=== PATIENT | female | born 1995 | race Caucasian/White ===

== ENCOUNTER 2017-02-03 13:33 | Emergency (ER) | payer BC ==
[2017-02-03 13:45] VITALS: BP 137/76
--- NOTE | 2017-02-03 14:45 | UC ---
Shortness of Breath HPI - History of Current Complaint Chief Complaint: UCGeneralIllness Stated Complaint: SOB,TIGHT CHEST,HOT SENSATION HEAD,NECK INTO CHEST Time Seen by Provider: 02/03/17 14:36 Hx Obtained From: Patient Hx Last Menstrual Period: 02/03/17 ?: No Onset/Duration: Sudden Onset - last night with the shortness of breath. Tightness in the chest like cannot take a deep breath, Lasting Days - 1, Still Present Current Severity: Mild Dyspnea At: Rest Aggrevating Factors: Deep Breaths Alleviating Factors: Nothing Associated Signs & Symptoms: Positive: Other - nausea, worsening reflux and some diarrhea - Risk Factors Pulmonary Embolism: Negative Cardiac: Negative Pseudomonas: Negative Tuberculosis: Negative - Allergy/Home Medications Allergies/Adverse Reactions: Allergies Allergy/AdvReac Type Severity Reaction Status Date / Time No Known Allergies Allergy Verified 02/03/17 13:44 Home Medications: Home Medications Omeprazole CAP* [Prilosec CAP* 20 MG] 20 mg PO DAILY 02/03/17 [History Confirmed 02/03/17] PMH/Surg Hx/FS Hx/Imm Hx Respiratory History Of: Reports: Asthma - as a child used an inhaler GI/ History Of: Reports: Gastroesophageal Reflux - Surgical History Surgical History: Yes Surgery Procedure, Year, and Place: bilateral knee surgeries, ovarian cyst removal 11/2016 - Family History Known Family History: Positive: Hypertension, Diabetes - Social History Occupation: Employed Full-time Lives: With Family Alcohol Use: None Substance Use Type: None Smoking Status (MU): Never Smoked Tobacco Review of Systems Respiratory: Shortness Of Breath Gastrointestinal: Diarrhea All Other Systems Reviewed And Are Negative: Yes Physical Exam Triage Information Reviewed: Yes Appearance: Well-Appearing, No Pain Distress, Well-Nourished Vital Signs: Initial Vital Signs Temp 98.8 F 02/03/17 13:39 Pulse 73 02/03/17 13:39 Resp 16 02/03/17 13:39 BP 137/76 02/03/17 13:39 Pulse Ox 100 02/03/17 13:39 Vital Signs Reviewed: Yes Eyes: Positive: Conjunctiva Inflamed ENT: Positive: Pharynx normal, TMs normal Neck exam: Normal Respiratory: Positive: Wheezing - minimal expiratory wheeze with coughing. Cardiovascular Exam: Normal Abdomen Description: Negative: Nontender - Mild LUQ and RLQ Bowel Sounds: Positive: Present Musculoskeletal Exam: Normal Neurological Exam: Normal Psychological Exam: Normal Skin Exam: Normal Re-Evaluation - Re-Evaluation First Eval Re-Evaluation Time: 15:18 Change: Improved - chest tightness is much better. No wheezing on exam now. Shortness of Breath Dx - Differential Dx/Diagnosis Differential Diagnosis/HQI/PQRI: Asthma, Pneumonia, Pneumothorax Provider Diagnoses: Acute bronchospasm. Enteritis, viral. GERD Discharge - Discharge Plan Condition: Stable Disposition: HOME Prescriptions: Albuterol HFA INHALER* [Ventolin HFA Inhaler*] 2 puff INH Q4H PRN #1 mdi PRN Reason: Wheezing Ondansetron ODT TAB* [Zofran 4 MG Odt TAB*] 4 mg PO Q6H PRN #14 tab.odt PRN Reason: Nausea/Vomiting Patient Education Materials: Bronchospasm (ED), Gastroenteritis (ED), Gastroesophageal Reflux Disease (ED) Additional Instructions: Try to stay well hydrated. Imodium is ok to use for diarrhea as long as you don't have blood or mucus in the stool
[2017-02-03] MEDS ORDERED: Ipratropium 0.5MG/2.5ML NEB* 0.5 MG/2.5 ML NEB.SOLN INH ONE (14:48)
[2017-02-03] MEDS ORDERED: Albuterol 2.5 MG/3 ML NEB.SOL* (0.083%) INH ONE (14:48)
== END 2017-02-03 15:35 | disposition home or self-care (01) ==
LOC: UCCORT 13:33
DX: J98.01 Acute bronchospasm (principal); K52.9 Noninfective gastroenteritis and colitis, unspecified; K21.9 Gastro-esophageal reflux disease without esophagitis
CPT/HCPCS: 93005; 99212; G0463; J7644

== ENCOUNTER 2019-09-09 08:56 | Emergency (ER) | payer BC ==
[2019-09-09 09:16] VITALS: BP 128/71
--- NOTE | 2019-09-09 11:04 | UC ---
Abdominal Pain Female HPI - HPI Summary HPI Summary: left lower abd / pelvic pain x 2 days pain is constant , severe 8 out of 10 worse with movements, better with rest and Tylenol no fever, no chills, no n/v/d/c , no urinary sx, had similar symptoms in the past with the dx of large ovarian cyst had to have surgery - History of Current Complaint Chief Complaint: UCAbdominalPain Stated Complaint: LOWER LEFT SIDE PAIN Time Seen by Provider: 09/09/19 09:17 Hx Obtained From: Patient Hx Last Menstrual Period: irregular; baby in May 2019 ?: No Onset/Duration: Gradual Onset, Lasting Days - 2, Still Present Timing: Constant Severity Initially: Severe Severity Currently: Moderate Pain Intensity: 8 Location: Discrete At: LLQ Radiates: No Character: Sharp, Tearing Aggravating Factor(s): Movement Alleviating Factor(s): Nothing Associated Signs and Symptoms: Negative: Fever, Cough, Chest Pain, Dizzy, Back Pain, Constipation, Blood in Stool, Urinary Symptoms, Decreased Appetite, Vaginal Bleeding, Vaginal Discharge, Nausea, Vomiting, Diarrhea Allergies/Adverse Reactions: Allergies Allergy/AdvReac Type Severity Reaction Status Date / Time No Known Allergies Allergy Verified 09/09/19 09:15 Home Medications: Home Medications Pnv No.95/Ferrous Fum/Folic AC [ Multivitamin Tablet] 1 each PO DAILY [History Confirmed 09/09/19] PMH/Surg Hx/FS Hx/Imm Hx - Additional Past Medical History Additional PMH: ovarian cyst Respiratory History: Asthma GI/ History: Gastroesophageal Reflux - Surgical History Surgical History: Yes Surgery Procedure, Year, and Place: bilateral knee surgeries, ovarian cyst removal 11/2016 - Family History Known Family History: Positive: None, Hypertension, Diabetes - Social History Alcohol Use: None Substance Use Type: None Smoking Status (MU): Never Smoked Tobacco Review of Systems All Other Systems Reviewed And Are Negative: Yes Constitutional: Positive: Negative Skin: Positive: Negative Eyes: Positive: Negative Is Patient Immunocompromised?: No Physical Exam Triage Information Reviewed: Yes Appearance: Well-Appearing, No Pain Distress Vital Signs: Initial Vital Signs Temp 98.1 F 09/09/19 09:13 Pulse 69 09/09/19 09:13 Resp 16 09/09/19 09:13 BP 128/71 09/09/19 09:13 Pulse Ox 99 09/09/19 09:13 Vital Signs Reviewed: Yes Eye Exam: Normal Eyes: Positive: Conjunctiva Clear ENT: Positive: Normal ENT inspection, Hearing grossly normal, Pharynx normal Neck: Positive: Supple, Nontender, No Lymphadenopathy Respiratory: Positive: Chest non-tender, Lungs clear, Normal breath sounds, No respiratory distress Cardiovascular: Positive: RRR, No Murmur, Pulses Normal Abdomen Description: Positive: No Organomegaly, Soft, Other: - mild tenderness left upper and lower abd. Negative: CVA Tenderness (R), CVA Tenderness (L), Distended, Guarding Skin Exam: Normal Abd Pain Female Course/Dx - Differential Dx/Diagnosis Provider Diagnosis: Pelvic pain Discharge ED - Sign-Out/Discharge Documenting (check all that apply): Patient Departure All imaging exams completed and their final reports reviewed: Yes - Discharge Plan Condition: Stable Disposition: HOME Patient Education Materials: Pelvic Pain in Women (ED) Referrals: Patricia Francis RN GYN [Primary Care Provider] - 5 Days Additional Instructions: normal pelvic US, no ovarian cyst noted - Billing Disposition and Condition Condition: STABLE Disposition: Home
== END 2019-09-09 11:02 | disposition home or self-care (01) ==
LOC: UCCORT 08:56
DX: R10.2 Pelvic and perineal pain (principal); J45.909 Unspecified asthma, uncomplicated
CPT/HCPCS: 76856; 81003; 84702; 99211; G0463

== ENCOUNTER 2020-01-02 12:12 | Emergency (ER) | payer BC ==
[2020-01-02 13:32] VITALS: BP 113/86
--- NOTE | 2020-01-02 14:21 | UC ---
FLU HPI - HPI Summary HPI Summary: Pt presents with c/o cough, ST, body aches, nasal congestion X 3 days. - History of Current Complaint Chief Complaint: UCGeneralIllness Stated Complaint: COUGH SORE THROAT EARS Time Seen by Provider: 01/02/20 13:34 Hx Obtained From: Patient Hx Last Menstrual Period: 12/17/19 ?: No Onset/Duration: Sudden Onset, Lasting Days, Still Present Severity Currently: Mild Severity Initially: Moderate Pain Intensity: 8 Associated Signs & Symptoms: Positive: Fever, Myalgia, Cough, Sore Throat, Nasal Congestion Related Hx: Possible Flu/Infectious Exposure - Risk Factors Influenza Risk Factors: Negative - Allergy/Home Medications Allergies/Adverse Reactions: Allergies Allergy/AdvReac Type Severity Reaction Status Date / Time No Known Allergies Allergy Verified 01/02/20 13:27 Home Medications: Home Medications Pnv No.95/Ferrous Fum/Folic AC [ Multivitamin Tablet] 1 each PO DAILY [History Confirmed 01/02/20] Acetaminophen [Tylenol] 2 tab PO ONCE 01/02/20 [History Confirmed 01/02/20] D-Methorphan/PE/Acetaminophen [Daytime Cold-Flu Relief Sftgl] 1 dose PO ONCE [History Confirmed 01/02/20] Oseltamivir CAP* [Tamiflu CAP*] 75 mg PO Q12H #10 cap 01/02/20 [Rx] PMH/Surg Hx/FS Hx/Imm Hx Previously Healthy: Yes - Surgical History Surgical History: Yes Surgery Procedure, Year, and Place: bilateral knee surgeries. ovarian cyst removal 11/2016 - Family History Known Family History: Positive: None, Hypertension, Diabetes - Social History Occupation: Employed Full-time Lives: With Family Alcohol Use: None Substance Use Type: None Smoking Status (MU): Never Smoked Tobacco Have You Smoked in the Last Year: No - Immunization History Vaccination Up to Date: Yes Review of Systems All Other Systems Reviewed And Are Negative: Yes Constitutional: Positive: Fever, Chills, Fatigue Skin: Positive: Negative Eyes: Positive: Negative ENT: Positive: Sore Throat, Sinus Congestion Respiratory: Positive: Cough Cardiovascular: Positive: Negative Gastrointestinal: Positive: Negative Genitourinary: Positive: Negative Motor: Positive: Negative Neurovascular: Positive: Negative Musculoskeletal: Positive: Myalgia Neurological/Mental Status: Positive: Negative Psychological: Positive: Negative Is Patient Immunocompromised?: No Physical Exam Triage Information Reviewed: Yes Appearance: Ill-Appearing Vital Signs: Initial Vital Signs Temp 99.5 F 01/02/20 13:28 Pulse 108 01/02/20 13:28 Resp 15 01/02/20 13:28 BP 113/86 01/02/20 13:28 Pulse Ox 99 01/02/20 13:28 Vital Signs Reviewed: Yes Eye Exam: Normal ENT: Positive: Nasal congestion Dental Exam: Normal Neck exam: Normal Respiratory Exam: Normal Cardiovascular: Positive: Tachycardia Musculoskeletal Exam: Normal Neurological Exam: Normal Psychological Exam: Normal Skin Exam: Normal Flu Course/Dx - Differential Dx/Diagnosis Differential Diagnosis/HQI/PQRI: Influenza, Upper Respiratory Infection Provider Diagnosis: Influenza A Discharge ED - Sign-Out/Discharge Documenting (check all that apply): Patient Departure All imaging exams completed and their final reports reviewed: No Studies - Discharge Plan Condition: Stable Disposition: HOME Prescriptions: Oseltamivir CAP* [Tamiflu CAP*] 75 mg PO Q12H #10 cap Patient Education Materials: Influenza (ED) Referrals: Patricia Francis BEHAVIORAL TECHNICIAN [Primary Care Provider] - If Needed - Billing Disposition and Condition Condition: STABLE Disposition: Home
[2020-01-02 14:26] LABS: Influenza A Molecular POSITIVE (Negative)
== END 2020-01-02 14:52 | disposition home or self-care (01) ==
LOC: UCCORT 12:12
DX: J10.1 Influenza due to other identified influenza virus with other respiratory manifestations (principal)
CPT/HCPCS: 87651; 99212; G0463